=== PATIENT | female | born 1995 | race Two or more races ===

== ENCOUNTER 2018-05-15 12:41 | Emergency (ER) | payer OTHER ==
[~2018-05-15] VITALS: Ht 154.9 cm; Wt 59.0 kg
== END 2018-05-15 19:46 | disposition home or self-care (01) ==
LOC: ER 12:41
DX: O21.0 Mild hyperemesis gravidarum (principal); Z34.01 Encounter for supervision of normal first pregnancy, first trimester

== ENCOUNTER 2018-05-20 21:55 | Emergency (ER) | payer OTHER ==
[~2018-05-20] VITALS: Ht 157.5 cm; Wt 59.0 kg
[2018-05-20] MEDS ORDERED: PRENATAL + DHA1 EAC1 (22:10)
[2018-05-20] MEDS ORDERED: ZOFRAN8 MG (22:11)
[2018-05-20] MEDS ORDERED: PROTONIX40 MG (22:11)
== END 2018-05-21 00:54 | disposition home or self-care (01) ==
LOC: ER 21:55
DX: O26.891 Other specified pregnancy related conditions, first trimester (principal); K59.09 Other constipation; R10.84 Generalized abdominal pain; M54.89 Other dorsalgia; Z34.01 Encounter for supervision of normal first pregnancy, first trimester

== ENCOUNTER 2018-12-21 10:09 | Inpatient (IN) | payer OTHER ==
[~2018-12-21] VITALS: Ht 154.9 cm; Wt 73.0 kg
[~2018-12-21 10:09] MED LIST: PRENATAL + DHA1 EAC1; PROTONIX40 MG; ZOFRAN8 MG
[2018-12-21] MEDS ORDERED: PRENATAL TABLE1 EAC1 PO (10:31)
== END 2018-12-24 20:35 | DRG 788 ==
LOC: OBS/DEL 10:09 → SURG-SUITE 11:30 → LDR 11:30 → OBS/DEL 11:30 → LDR 14:56 → SURG-SUITE 23:37
PROVIDERS: ADMIT Obstetrics & Gynecology
PROC: 4A1HXCZ Monitoring of Products of Conception, Cardiac Rate, External Approach (ICD-10-PCS; 2018-12-21)
PROC: 4A033R1 Measurement of Arterial Saturation, Peripheral, Percutaneous Approach (ICD-10-PCS; 2018-12-21)
PROC: 10D00Z1 Extraction of Products of Conception, Low, Open Approach (ICD-10-PCS; principal; 2018-12-21 21:00)
DX: O62.1 Secondary uterine inertia (principal); Z3A.37 37 weeks gestation of pregnancy; Z37.0 Single live birth

== ENCOUNTER 2018-12-26 21:19 | Emergency (ER) | payer OTHER ==
[~2018-12-26] VITALS: Ht 154.9 cm; Wt 61.2 kg
[~2018-12-26 21:19] MED LIST changes: +PRENATAL TABLE1 EAC1 PO
[2018-12-27] MEDS ORDERED: MACROBID 100 M100 MG PO (02:12)
== END 2018-12-27 02:46 | disposition home or self-care (01) ==
LOC: ER 21:19
DX: R33.9 Retention of urine, unspecified (principal)

== ENCOUNTER 2022-03-04 17:50 | Emergency (ER) | payer OTHER ==
[~2022-03-04] VITALS: Ht 152.4 cm; Wt 56.7 kg
[~2022-03-04 17:50] MED LIST changes: +MACROBID 100 M100 MG PO
== END 2022-03-04 20:54 | disposition home or self-care (01) ==
LOC: ER 17:50
DX: O20.9 Hemorrhage in early pregnancy, unspecified (principal); Z3A.01 Less than 8 weeks gestation of pregnancy

== ENCOUNTER 2022-07-22 12:15 | Emergency (ER) | payer OTHER ==
[~2022-07-22] VITALS: Ht 154.9 cm; Wt 62.1 kg
== END 2022-07-22 22:34 | disposition home or self-care (01) ==
LOC: ER 12:15
DX: O20.0 Threatened abortion (principal)

== ENCOUNTER 2022-11-02 11:15 | Outpatient (CLI) | payer OTHER | END 2022-11-02 12:20 | disposition home or self-care (01) | LOC: PRENATAL 11:15 | PROVIDERS: ATTEND Obstetrics & Gynecology Maternal & Fetal Medicine | DX: O35.3XX0 Maternal care for (suspected) damage to fetus from viral disease in mother, not applicable or unspecified (principal); O34.219 Maternal care for unspecified type scar from previous cesarean delivery; Z3A.21 21 weeks gestation of pregnancy ==

== ENCOUNTER 2022-11-08 19:57 | Outpatient (CLI) | payer OTHER ==
[2022-11-08] MEDS ORDERED: PRENATAL + DHA1 EAC1 PO (20:11)
== END 2022-11-09 19:45 | disposition home or self-care (01) ==
LOC: OBS/DEL 19:57
PROVIDERS: ATTEND Obstetrics & Gynecology
DX: O26.892 Other specified pregnancy related conditions, second trimester (principal); K62.5 Hemorrhage of anus and rectum; Z3A.22 22 weeks gestation of pregnancy

== ENCOUNTER 2023-01-06 16:02 | Outpatient (CLI) | payer OTHER ==
[~2023-01-06 16:02] MED LIST changes: +PRENATAL + DHA1 EAC1 PO
== END 2023-01-06 16:52 | disposition home or self-care (01) ==
LOC: OBS/DEL 16:02
PROVIDERS: ATTEND Obstetrics & Gynecology
DX: O26.893 Other specified pregnancy related conditions, third trimester (principal); K62.5 Hemorrhage of anus and rectum; Z3A.30 30 weeks gestation of pregnancy

== ENCOUNTER 2023-01-17 09:13 | Outpatient (CLI) | payer OTHER | END 2023-01-17 10:25 | disposition home or self-care (01) | LOC: PRENATAL 09:13 | PROVIDERS: ATTEND Obstetrics & Gynecology Maternal & Fetal Medicine | DX: O26.849 Uterine size-date discrepancy, unspecified trimester (principal); O35.9XX0 Maternal care for (suspected) fetal abnormality and damage, unspecified, not applicable or unspecified; O36.8199 Decreased fetal movements, unspecified trimester, other fetus; O34.219 Maternal care for unspecified type scar from previous cesarean delivery; Z3A.32 32 weeks gestation of pregnancy ==

== ENCOUNTER 2023-02-17 09:32 | Outpatient (CLI) | payer OTHER | END 2023-02-17 10:45 | disposition home or self-care (01) | LOC: PRENATAL 09:32 | PROVIDERS: ATTEND Obstetrics & Gynecology Maternal & Fetal Medicine | DX: O26.849 Uterine size-date discrepancy, unspecified trimester (principal); O35.3XX0 Maternal care for (suspected) damage to fetus from viral disease in mother, not applicable or unspecified; O36.8199 Decreased fetal movements, unspecified trimester, other fetus; O34.219 Maternal care for unspecified type scar from previous cesarean delivery; Z3A.36 36 weeks gestation of pregnancy ==

== ENCOUNTER 2023-03-03 08:53 | Inpatient (IN) | payer OTHER ==
[~2023-03-03] VITALS: Ht 154.9 cm; Wt 2.7 kg
[2023-03-06] MEDS ORDERED: KETO10TA2 PO (12:38)
[2023-03-06] MEDS ORDERED: ACETAMINOPHEN-1 EAC2 PO (12:39)
[2023-03-06] MEDS ORDERED: DOCUSATE SODIU100 MG PO (12:39)
== END 2023-03-06 13:02 | disposition home or self-care (01) | DRG 788 ==
LOC: LDR 08:53 → O/R 18:19 → OB/GYN 20:32
PROVIDERS: ADMIT Obstetrics & Gynecology; ATTEND Obstetrics & Gynecology
PROC: 4A1HXCZ Monitoring of Products of Conception, Cardiac Rate, External Approach (ICD-10-PCS; 2023-03-03)
PROC: 10D00Z1 Extraction of Products of Conception, Low, Open Approach (ICD-10-PCS; principal; 2023-03-03 16:30)
DX: O32.1XX0 Maternal care for breech presentation, not applicable or unspecified (principal); O34.211 Maternal care for low transverse scar from previous cesarean delivery; Z3A.38 38 weeks gestation of pregnancy; Z37.0 Single live birth; Z20.822 Contact with and (suspected) exposure to COVID-19

== ENCOUNTER 2023-03-09 14:40 | Emergency (ER) | payer OTHER ==
[~2023-03-09] VITALS: Ht 157.5 cm; Wt 79.4 kg
[~2023-03-09 14:40] MED LIST changes: +ACETAMINOPHEN-1 EAC2 PO; +DOCUSATE SODIU100 MG PO; +KETO10TA2 PO
== END 2023-03-09 21:17 | disposition home or self-care (01) ==
LOC: ER 14:40
DX: K59.00 Constipation, unspecified (principal); Z91.040 Latex allergy status